=== PATIENT | male | born 1970 ===

== ENCOUNTER 2016-12-29 15:39 | Emergency (ER) | payer OTHER ==
[2016-12-29] MEDS ORDERED: Naproxen TAB* 250 MG PO ONE (15:56)
--- NOTE | 2016-12-29 15:56 | UC ---
Knee Pain HPI - HPI Summary HPI Summary: The patient comes in today for: 1. Right knee pain: Onset: Last night. Palliative/provocative: Walking makes it worse. Quality: Sharp with bearing weight. Region: Front medial side of the knee. Severity: 7/10 Time: Constant. Associated symptoms: Bearing weight: He can bear weight on it, but doing so makes it worse. Previous treatment: None--no ice or Rx. Previous knee problems: None. Event: He was working on his vehicle. When he stood up, the knee "popped" and that was when it started aching. Catching/giving away: Sometimes, the knee will give out. 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 - Allergies/Home Medications Allergies/Adverse Reactions: Allergies Allergy/AdvReac Type Severity Reaction Status Date / Time No Known Allergies Allergy Verified 12/29/16 15:48 PMH/Surg Hx/FS Hx/Imm Hx Previously Healthy: Yes - Surgical History Surgical History: None - Family History Known Family History: Negative: Hypertension, Diabetes - Social History Occupation: Employed Full-time Lives: With Family Alcohol Use: Daily Substance Use Type: None Smoking Status (MU): Heavy Every Day Tobacco Smoker Amount Used/How Often: 1/2 ppd Review of Systems Constitutional: Negative Skin: Negative Eyes: Negative ENT: Negative Respiratory: Negative Cardiovascular: Negative Gastrointestinal: Negative Musculoskeletal: Arthralgia All Other Systems Reviewed And Are Negative: Yes Physical Exam Triage Information Reviewed: Yes Appearance: Well-Appearing, No Pain Distress - While sitting., Thin Vital Signs: Initial Vital Signs Temp 99.1 F 12/29/16 15:45 Pulse 71 12/29/16 15:45 Resp 20 12/29/16 15:45 BP 126/86 12/29/16 15:45 Pulse Ox 99 12/29/16 15:45 Vital Signs Reviewed: Yes Eyes: Positive: Conjunctiva Clear. Negative: Discharge ENT: Positive: Hearing grossly normal. Negative: Pharyngeal erythema, Nasal congestion, Nasal drainage, TM bulging, TM dull, TM red, Tonsillar swelling, Tonsillar exudate Dental: Negative: Gross Decay/Caries @, Dental Fracture @ Neck: Positive: Supple, Nontender, No Lymphadenopathy. Negative: Nuchal Rigidity Respiratory: Positive: Chest non-tender, Lungs clear, No respiratory distress, No accessory muscle use. Negative: Crackles, Wheezing Cardiovascular: Positive: RRR, No Murmur Abdomen Description: Positive: Nontender, No Organomegaly, Soft. Negative: Distended, Guarding Musculoskeletal: Positive: Strength Intact, ROM Intact, Other: - Right knee: There is no marked joint effusion or erythema or ecchymosis. There is no posterior capsule tenderness to palpation or tenderness to plucking of the hamstring tendons. There is no marked laxity or pain with stressing the collateral ligaments or cruciate ligaments. There is no patellar or tibial tuberosty tenderness to palpation. There is no tenderness to palpation of the anterior medial or lateral meniscii. There is slight tenderness to palpation of the medial area below the joint space at the pes anserine bursa area. Knee extension test (Hughston test): test Positive. Medial patellar plica (MPP) test : negative. Neurological: Positive: Alert, Muscle Tone Normal Psychological: Positive: Age Appropriate Behavior, Consolable Skin: Negative: rashes, breakdown Diagnostics - Radiology No standard instances Xray Interpretation: No Acute Changes - IMPRESSION: 1. Small suprapatellar joint effusion without appearance of acute fracture or dislocation of the right knee. 2. Well-circumscribed lucency overlying the right lateral tibial plateau with benign radiographic characteristics. If the patient's symptoms persist, follow-up imaging is recommended. Radiology Interpretation Completed By: Radiologist Knee Pain Course/Dx - Course Course Of Treatment: Patient told of his treatment options. - Differential Dx/Diagnosis Differential Diagnosis/HQI/PQRI: Contusion, Sprain Provider Diagnoses: Right knee pain (plica syndrome and/or per anserine bursitis ) Discharge - Discharge Plan Condition: Stable Disposition: HOME Patient Education Materials: [employer] (ED) Forms: *Work Release Referrals: Jl Locke MD [Medical Doctor] - [facility] [place] [facility]IAN REFERRAL [Outside] Additional Instructions: Please be seen in 1-2 weeks by your primary care provider or an orthopedic surgeon in 1-2 weeks to see how well you are doing. IF you get worse, please be seen sooner.
--- NOTE | 2016-12-29 16:28 | RAD ---
INDICATION: Right knee pain COMPARISON: None TECHNIQUE: 4 view radiograph of the right knee. FINDINGS: Overlying the epiphysis of the lateral right tibial plateau there is a 1.2 cm well circumscribed faintly lucent area that is not well-defined on the lateral view. The bones are otherwise well corticated and appropriately aligned. There is a small suprapatellar joint effusion. No acute fracture or dislocation is identified. IMPRESSION: 1. Small suprapatellar joint effusion without appearance of acute fracture or dislocation of the right knee. 2. Well-circumscribed lucency overlying the right lateral tibial plateau with benign radiographic characteristics. If the patient's symptoms persist, follow-up imaging is recommended.
== END 2016-12-29 16:55 | disposition home or self-care (01) ==
LOC: UCEAST 15:39
DX: M67.51 Plica syndrome, right knee (principal); M70.51 Other bursitis of knee, right knee; Y93.9 Activity, unspecified; F17.210 Nicotine dependence, cigarettes, uncomplicated
CPT/HCPCS: 99202; A9270-GY; G0463